=== PATIENT | male | born 1965 | race African-American/Black ===

== ENCOUNTER → 2018-11-21 | Outpatient (CLI) | payer BC, OTHER ==
[~2018-11-21] MED LIST: FAMOTIDINE PO
== END ==
LOC: RAD 15:41
DX: M25.561 Pain in right knee (principal)

== ENCOUNTER → 2021-07-29 | Outpatient (CLI) | payer BC, OTHER | LOC: ULTRA 08:38 | PROVIDERS: ATTEND Family Medicine | DX: N43.2 Other hydrocele (principal); N50.3 Cyst of epididymis ==